=== PATIENT | female | born 1955 | race Caucasian/White ===

== ENCOUNTER 2023-05-18 14:37 | Outpatient (AMB) | payer BC, SELFPAY ==
[2023-05-18 14:51] VITALS: BP 140/76; PULSE 76; TEMP 36.4; O2SAT 98; BMI 27.8
--- NOTE | 2023-05-18 14:51 | MHC.OFFVIS ---
Intake Vital Signs 05/18/23 14:51 Height 5 ft 3 in Weight 157 lb 3.033 oz BMI 27.8 BP 140/76 H Blood Pressure Location Rt brachial Position Sitting Pulse 76 Pulse Source Pulse Oximeter Temp 97.6 F Temp Source Skin Pulse Oximetry (%) 98 Intake Visit Reasons: Fibromyalgia Intake Note: New pt presents today for FM consult. Tester Electronic Scale Required: No Accompanied by: Self / Same As Patient Allergies No Known Allergies Allergy (Verified 05/18/23 14:54) Medication List - Last Reconciled 05/18/23 by Vern Sweeney MD amitriptyline 20 mg PO BEDTIME atorvastatin 10 mg PO DAILY colestipol 2 grams PO DAILY esomeprazole magnesium 20 mg PO DAILY estradiol 0.01%(0.1mg/gram) grams vaginal HPI HPI Comments History of Present Illness Details This is a 67-year-old female who presents for evaluation of fibromyalgia. Patient stated that she has had fibromyalgia and arthritis for many years. She has been having left hip pain, recent hip x-ray showed progressive left hip osteoarthritis and patient was evaluated by an orthopedic surgeon and she is planned for left hip replacement. She also has pain in her back, usually worse with walking and going up the stairs. Does not radiate to her lower extremities. She has tingling and numbness of her right 3rd and 4th toes as well as numbness of the sole of both feet. She has restless leg and was prescribed amitriptyline by PCP which was not helpful. She states that when the cat sits on her lab she would get thigh pain. 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 Female Reproductive History Menstrual Total pregnancies: 2 Number of Living Children: 2 Review of Systems ENT Reports dry mouth and Reports tinnitus Card Reports dyspnea Resp Reports dyspnea GI Reports heartburn Musc Reports back pain, Reports myalgias, Reports arthralgias and Reports muscle cramps Psych Reports abnormal sleep pattern Physical Exam Vital Signs: Last Vital Signs Temp 97.6 F 05/18/23 14:51 Pulse 76 05/18/23 14:51 BP 140/76 H 05/18/23 14:51 Pulse Ox 98 05/18/23 14:51 BMI result Body Mass Index 27.8 Const General: cooperative, healthy appearing and comfortable Nutritional Appearance: overweight Orientation/consciousness: patient oriented x3 Limitations: no limitations HEENT Head: Yes normocephalic and Yes atraumatic Mouth: moist mucous membranes Resp Effort & Inspection: normal respiratory effort and able to speak in complete sentences GI Inspection: No distended Palpation (GI): Soft to palpation and nontender Neuro General: patient oriented x3 Extrem Other: Osteoarthritic changes of both hands with prominent Sweta's and Heberden's nodes. No active synovitis Normal range of motion of both elbows and shoulders Bilateral paraspinal muscle tenderness in the lower thoracic to lumbar areas. Negative straight leg raise test bilaterally Left trochanteric bursa area tenderness Few fibromyalgia tender points Assessment & Plan Assessment & Plan (1) Fibromyalgia: Code(s): M79.7 - Fibromyalgia Plan: This is a 67-year-old female who presents for evaluation of fibromyalgia. I do not see any signs of autoimmune rheumatic disease upon evaluation Discussed management of fibromyalgia with patient. Is a noninflammatory, non-autoimmune central afferent processing disorder leading to a diffuse pain syndrome. I suggested evaluation by a therapist and/or a psychiatrist to evaluate for underlying anxiety/depression. Try to follow sleep hygiene practices. Consider referral for a sleep study from her PCP. Patient would benefit from increased physical activity, either through formal physical therapy or by joining a gym. Advised patient that she should start activity slowly and increase as tolerated. Consider low-impact exercises such as walking, swimming, aqua therapy stretching, yoga. (2) Peripheral neuropathy: Code(s): G62.9 - Polyneuropathy, unspecified Plan: Peripheral neuropathy versus lumbar radiculopathy. Will check bilateral lower extremity NCS/EMG Plan I spent 46 minutes reviewing patient's chart, evaluating patient, ordering diagnostic workup, counseling patient and documenting in the chart Orders: Orders NE electromyogram (EMG) Today G62.9 - Polyneuropathy, unspecified Coding Level of Care Code New Pt Level 4 (66181) Diagnoses Fibromyalgia M79.7 Peripheral neuropathy G62.9
== END 2023-05-18 15:41 | disposition home or self-care (01) ==
PROVIDERS: PCP Internal Medicine; Visit Provider Student in an Organized Health Care Education/Training Program
DX: M79.7 Fibromyalgia (principal); G62.9 Polyneuropathy, unspecified
CPT/HCPCS: 99204

== ENCOUNTER → 2023-05-18 14:37 | Outpatient (BNVA) | payer BC, SELFPAY | PROVIDERS: PCP Internal Medicine; Visit Provider Student in an Organized Health Care Education/Training Program ==

== ENCOUNTER 2023-06-04 12:18 | Outpatient (REF) | payer BC, SELFPAY ==
--- NOTE | 2023-06-04 | EMG_ITS ---
Chief complaint: Bilateral legs/feet numbness constant, denies back pain Reason for referral: Evaluate for neuropathy Referred by: Dr. Sweeney Procedure done: Bilateral lower extremity NCS/EMG Precautions and/or limitations: None The limb temperature was monitored continuously and remained between 32-36 degrees C during the performance of the NCS. Nerve Conduction Studies Anti Sensory Summary Table ?Stim Site NR Onset (ms) Norm Onset (ms) Peak (ms) Norm Peak (ms) O-P Amp (?V) Norm O-P Amp Site1 Site2 Delta-0 (ms) Dist (cm) Jones (m/s) Norm Jones (m/s) Left Sural Anti Sensory (Lat Mall) Calf ? 4.0 5.0 <4.0 11.9 >5.0 Calf Lat Mall 4.0 14.0 35 Right Sural Anti Sensory (Lat Mall) Calf ? 4.0 4.6 <4.0 10.9 >5.0 Calf Lat Mall 4.0 14.0 35 Motor Summary Table ?Stim Site NR Onset (ms) Norm Onset (ms) O-P Amp (mV) Norm O-P Amp iAmp (mV) Amp (1st) (%) Site1 Site2 Delta-0 (ms) Dist (cm) Jones (m/s) Norm Jones (m/s) Left Peroneal Motor (Ext Dig Brev) Ankle ? 5.3 <4.0 0.8 >2.5 1.0 100.0 Ankle Ext Dig Brev 5.3 0.0 B Fib ? 13.7 1.3 1.4 162.5 B Fib Ankle 8.4 36.0 43 >40 Poplt ? 14.8 2.0 2.0 250.0 Poplt B Fib 1.1 5.0 45 >40 Right Peroneal Motor (Ext Dig Brev) Ankle ? 4.0 <4.0 1.1 >2.5 1.1 100.0 Ankle Ext Dig Brev 4.0 0.0 B Fib ? 12.7 0.8 0.7 72.7 B Fib Ankle 8.7 35.0 40 >40 Poplt ? 12.9 0.8 0.7 72.7 Poplt B Fib 0.2 3.5 175 >40 Left Tibial Motor (Abd Atkinson Brev) Ankle ? 5.6 <5 0.3 >2.5 0.3 100.0 Ankle Abd Atkinson Brev 5.6 0.0 Knee NR Knee Ankle 0.0 >40 Right Tibial Motor (Abd Atkinson Brev) Ankle ? 4.1 <5 2.0 >2.5 2.3 100.0 Ankle Abd Atkinson Brev 4.1 0.0 Knee ? 14.2 1.4 1.5 70.0 Knee Ankle 10.1 40.0 40 >40 EMG ?Side Muscle Nerve Root Ins Act Fibs Psw Amp Dur Poly Recrt Int Pat Comment Right AbdHallucis MedPlantar S1-2 Nml Nml Nml Nml Nml 0 Nml Complete Right AntTibialis Dp Br Peron L4-5 Nml Nml Nml Incr Incr 1+ Nml Complete Right PostTibialis Tibial L5, S1 Incr 1+ 1+ Nml Nml 0 Nml Complete Right MedGastroc Tibial S1-2 Incr 1+ 1+ Incr Incr 0 Nml Complete Right VastusMed Femoral L2-4 Nml Nml Nml Nml Nml 0 Nml Complete Left AbdHallucis MedPlantar S1-2 Nml Nml Nml Nml Nml 0 Nml Complete Left AntTibialis Dp Br Peron L4-5 Incr 1+ 1+ Incr Incr 0 Nml Complete Left PostTibialis Tibial L5, S1 Nml Nml Nml Nml Nml 0 Nml Complete Left MedGastroc Tibial S1-2 Nml Nml Nml Nml Nml 0 Nml Complete Left VastusMed Femoral L2-4 Nml Nml Nml Nml Nml 0 Nml Complete Paraspinal EMG ?Side Muscle Nerve Root Ins Act Fibs Psw Comment Right Lumbar Upper Rami Nml Nml Nml Right Lumbar Mid Rami Nml Nml Nml Right Lumbar Lower Rami Nml Nml Nml Left Lumbar Upper Rami Nml Nml Nml Left Lumbar Mid Rami Nml Nml Nml Left Lumbar Lower Rami Nml Nml Nml FINDINGS: Right peroneal nerve showed normal distal latency, small amplitude and normal conduction velocity. Left peroneal nerve showed prolonged distal latency, small amplitude and normal conduction velocity. Right tibial nerve showed normal distal latency, small amplitude and normal conduction velocity. Left tibial nerve showed very small amplitudes/no response. Bilateral sural nerves were present but showed prolonged peak latency. Concentric needle EMG was performed in selected muscles of the bilateral lower extremity and lumbar paraspinals. Study revealed Signs of electric abnormalities as shown in the table below. Right medial gastrocnemius showed increased insertional activity, PSWs and fibrillations, and increased amplitude and duration. Right tibialis anterior showed increased amplitude and duration, and polyphasia. Right posterior tibialis showed increased insertional activity, PSWs and fibrillations. Left tibialis anterior showed increased insertional activity, PSWs and fibrillations, and increased amplitude and duration. No denervation seen on lumbar paraspinals. No denervation or reinnervation changes seen on most distal muscle like AH. IMPRESSION: 1. This is an abnormal study. 2. There is electrodiagnostic findings suggestive for bilateral L5-S1 radiculopathy, with acute on chronic features. 3. Differential diagnosis for prolonged latencies of bilateral sural nerves include: underlying neuropathy, sciatic neuropathy, or age. CLINICAL COMMENT: Further clinical correlation recommended. Thank you for your kind referral. Lo Denton MD, HAY Board Certified, [place] Board [employer] Medicine and Rehabilitation (ABPMR) Board Certified, [place] Board of Electrodiagnostic Medicine (ABEM) [place] [id number] [facility]
== END 2023-06-04 12:19 | disposition home or self-care (01) ==
LOC: HO.NEURO 12:18
PROVIDERS: PCP Internal Medicine; Visit Provider Student in an Organized Health Care Education/Training Program
DX: M79.604 Pain in right leg (principal); M79.605 Pain in left leg; R20.0 Anesthesia of skin
CPT/HCPCS: 95886; 95909

== ENCOUNTER 2023-06-21 08:15 | Outpatient (AMB) | payer BC, SELFPAY ==
--- NOTE | 2023-06-21 08:16 | A.OFFVIS_ITS ---
Intake Vital Signs 06/21/23 08:26 Height 5 ft 3 in Weight 156 lb 8 oz BMI 27.7 BP 135/68 Blood Pressure Location Rt brachial Position Sitting Pulse 87 Pulse Source Pulse Oximeter Pulse Oximetry (%) 96 Oxygen Delivery Method Room Air Intake Visit Reasons: fibromyalgia Allergies No Known Allergies Allergy (Verified 06/21/23 08:25) HPI fibromyalgia HPI Details Patient is a pleasant 67 years old female with prior history of left hip pain, resless leg syndrome, progressive left hip OA with plans for left hip replacement, fibromyalgia, chronic pain syndrome and peripheral neuropathy. She was [place] to us [place] [facility] [place] [facility] to evaluate for L5-S1 radiculopathy findings per recent EMG studies as noted below. Patient reports chronic low back pain without radiation into her lower extremities. Pain spreads across her lower back and increases with walking, climbing stairs, prolonged driving, prolonged standing and housework chores. She reports seeing [facility] in the past and received back injection with partial improvement. Her pain symptoms overlap with with fibromyalgia, left hip, knee and foot pain. SLR testing is negative bilaterally. She reports driving from [place] this weekend and notes increase in her back symptoms. Reports numbness and tingling in both feet, mostly soles of her feet. Pain is constant and rated at 8-9/10 intensity. Pain affects her daily activities, functioning, sleep, social activities, mood and quality of life. Patient denies any bladder or bowel incontinence or saddle anesthesia. Location Lower back pain, left hip, knee and foot pain Duration Chronic back pain and chronic pain syndrome for many years Characteristics of symptom or complaint Aching, burning, pulsing, stabbing, sharp, tingling, tight, tiring Aggravating or associated factors Walking, housework, prolonged standing or driving, bending, twisting Relieving factors Rest, sitting, Tylenol, OTC topical applications Treatment PT, remote back injections at [facility] Medical History (Updated 06/21/23 @ 09:27 by AMARJIT Johnson) Pain in left hip Microhematuria Mass of arm LUQ abdominal pain Hypovitaminosis D Hyperlipidemia Hammertoe of left foot Costochondral chest pain Chronic heartburn Chronic back pain Burning sensation of feet Spinal stenosis in cervical region Chronic pain of multiple joints Fibromyalgia CTS (carpal tunnel syndrome) Surgical History Hx of lumpectomy Hx of cholecystectomy Family History Mother Dementia Social History Household Members: Spouse Household Members Other:: Daughter Alcohol intake: former Year quit: 2019 Patient Tobacco Use Status: Never used Tobacco e-Cigarette/Vaping Use: Never Used Current occupational status: retired 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 Alert and oriented. Mood and affect appropriate. Follows and participates in conversation appropriately. Respiratory effort is unlabored. No cough. Able to transition from sit to stand unassisted. Ambulates with bilaterally normal heel strike and toe off. Back/Spine/Pelvis Other: Patient is able to walk and stand on heels and tip toes with no difficulties demonstrating good motor tone. Mildly antalgic gait, mild limping. Can flex forward to 70-75 degrees and extend to 5-10 degrees before experiencing lumbar pain. Demonstrates 5/5 right and 4/5 left strength of quadriceps bilaterally as well as flexion/dorsiflexion of bilateral feet against resistance. 2+ pedal pulses bilaterally. Seated straight leg rise with dorsiflexion negative bilaterally. +1 patellar and achilles reflexes bilaterally. Facet loading test positive bilaterally. Kamryn sign, Cristhian?s reproduces left lateral hip, mild back pain on the left, negative on the right. Mild groin pain with I/E hip rotations on the left. Valsalva maneuver negative. Mild TTP to left GTB. Few fibromyalgia tender points upper and lower extremities. Cervical Spine: cervical ROM normal and No Cervical spine tenderness Thoracic/Lumbar Spine: thoracic and lumbar spine normal to inspection, No Thoracic/lumbar spine scar(s), Lasegue's sign negative, straight leg raise negative bilaterally, pain with thoraco-lumbar ROM, paraspinal muscle tenderness, No thoracic spinal tenderness and lumbar spinal tenderness at L4 and at L5 Pelvis: no buttock tenderness Sacroiliac joints: bilaterally nontender Results Reviewed Results Reviewed: NE electromyogram (EMG); NE nerve conduction velocity 06/04/23 FINDINGS: Right peroneal nerve showed normal distal latency, small amplitude and normal conduction velocity. Left peroneal nerve showed prolonged distal latency, small amplitude and normal conduction velocity. Right tibial nerve showed normal distal latency, small amplitude and normal conduction velocity. Left tibial nerve showed very small amplitudes/no response. Bilateral sural nerves were present but showed prolonged peak latency. Concentric needle EMG was performed in selected muscles of the bilateral lower extremity and lumbar paraspinals. Study revealed Signs of electric abnormalities as shown in the table below. Right medial gastrocnemius showed increased insertional activity, PSWs and fibrillations, and increased amplitude and duration. Right tibialis anterior showed increased amplitude and duration, and polyphasia. Right posterior tibialis showed increased insertional activity, PSWs and fibrillations. Left tibialis anterior showed increased insertional activity, PSWs and fibrillations, and increased amplitude and duration. No denervation seen on lumbar paraspinals. No denervation or reinnervation changes seen on most distal muscle like AH. IMPRESSION: 1. This is an abnormal study. 2. There is electrodiagnostic findings suggestive for bilateral L5-S1 radiculopathy, with acute on chronic features. 3. Differential diagnosis for prolonged latencies of bilateral sural nerves include: underlying neuropathy, sciatic neuropathy, or age. CLINICAL COMMENT: Further clinical correlation recommended. Assessment & Plan Assessment & Plan (1) Lumbar radiculopathy: Code(s): M54.16 - Radiculopathy, lumbar region (2) Peripheral neuropathy: Code(s): G62.9 - Polyneuropathy, unspecified (3) Fibromyalgia: Code(s): M79.7 - Fibromyalgia (4) Chronic low back pain: Code(s): M54.50 - Low back pain, unspecified; G89.29 - Other chronic pain (5) Lumbar spondylosis: Code(s): M47.816 - Spondylosis without myelopathy or radiculopathy, lumbar region Plan MRI of the lumbar spine to assess for neural integrity and compression and to follow up on recent EMG studies suggestive of L5-S1 radiculpathy. Patient prefers to defer physical therapy at this time due to significant left hip pain and awaits left total hip replacement in the near future. All questions and concerns have been answered and patient agreed with the plan. Patient will return to the clinic to discuss results of the MRI findings when it is done and consider interventional therapy as indicated. Orders: Orders MR lumbar spine wo con Today F40.240 - Claustrophobia, G62.9 - Polyneuropathy, unspecified, M54.16 - Radiculopathy, lumbar region Coding Level of Care Code New Pt Level 4 (73397) Diagnoses Lumbar radiculopathy M54.16 Peripheral neuropathy G62.9 Fibromyalgia M79.7 Chronic low back pain M54.50; G89.29 Lumbar spondylosis M47.816
[2023-06-21 08:26] VITALS: BP 135/68; PULSE 87; O2SAT 96; BMI 27.7
== END 2023-06-21 08:43 | disposition home or self-care (01) ==
PROVIDERS: PCP Internal Medicine; Visit Provider Nurse Practitioner Family
DX: G89.29 Other chronic pain (principal); M79.7 Fibromyalgia; M47.26 Other spondylosis with radiculopathy, lumbar region; G62.9 Polyneuropathy, unspecified
CPT/HCPCS: 99204

== ENCOUNTER → 2023-06-21 08:15 | Outpatient (BNVA) | payer BC, SELFPAY | PROVIDERS: PCP Internal Medicine; Visit Provider Nurse Practitioner Family ==

== ENCOUNTER 2023-08-24 13:20 | Outpatient (AMB) | payer BC, SELFPAY ==
--- NOTE | 2023-08-24 13:27 | MHC.OFFVIS ---
Intake Vital Signs 08/24/23 13:30 Height 5 ft 3 in Weight 157 lb 10.088 oz BMI 27.9 BP 146/78 H Blood Pressure Location Rt brachial Position Sitting Pulse 98 Pulse Source Pulse Oximeter Temp 97.6 F Temp Source Skin Pulse Oximetry (%) 97 Oxygen Delivery Method Room Air Intake Visit Reasons: FMS Intake Note: Pt last seen 05/18/23, presents today to follow up. Would like to know EMG and MRI test results. Coil Cleaner Required: No Accompanied by: Self / Same As Patient Allergies No Known Allergies Allergy (Verified 08/24/23 13:36) Medication List - Last Reconciled 08/24/23 by Vern Sweeney MD amitriptyline 20 mg PO BEDTIME atorvastatin 10 mg PO DAILY colestipol 2 grams PO DAILY esomeprazole magnesium 20 mg PO DAILY estradiol 0.01%(0.1mg/gram) grams vaginal HPI HPI Comments History of Present Illness Details 67-year-old female with fibromyalgia returns for follow-up. She states that been putting off her left hip replacement, she would like to get it done after the holidays. She states that her fibromyalgia is about the same. She was evaluated by Pain Management and an MRI was ordered and completed but patient did not have a follow-up appointment with pain management. Initial history: This is a 67-year-old female who presents for evaluation of fibromyalgia. Patient stated that she has had fibromyalgia and arthritis for many years. She has been having left hip pain, recent hip x-ray showed progressive left hip osteoarthritis and patient was evaluated by an orthopedic surgeon and she is planned for left hip replacement. She also has pain in her back, usually worse with walking and going up the stairs. Does not radiate to her lower extremities. She has tingling and numbness of her right 3rd and 4th toes as well as numbness of the sole of both feet. She has restless leg and was prescribed amitriptyline by PCP which was not helpful. She states that when the cat sits on her lab she would get thigh pain. [facility] Medical History Pain in left hip Microhematuria Mass of arm LUQ abdominal pain Hypovitaminosis D Hyperlipidemia Hammertoe of left foot Costochondral chest pain Chronic heartburn Chronic back pain Burning sensation of feet Spinal stenosis in cervical region Chronic pain of multiple joints Fibromyalgia CTS (carpal tunnel syndrome) Surgical History Hx of lumpectomy Hx of cholecystectomy Family History Mother Dementia Social History Household Members: Spouse Household Members Other:: Daughter Alcohol intake: former Year quit: 2019 Patient Tobacco Use Status: Never used Tobacco e-Cigarette/Vaping Use: Never Used Current occupational status: retired Current occupation: [employer] Review of Systems ENT Reports tinnitus Musc Reports back pain, Reports myalgias, Reports arthralgias and Reports muscle cramps Psych Reports abnormal sleep pattern Physical Exam Vital Signs: Last Vital Signs Temp 97.6 F 08/24/23 13:30 Pulse 98 08/24/23 13:30 BP 146/78 H 08/24/23 13:30 Pulse Ox 97 08/24/23 13:30 Oxygen Delivery Method Room Air 08/24/23 13:30 BMI result Body Mass Index 27.9 Const General: cooperative, healthy appearing and comfortable Nutritional Appearance: overweight Orientation/consciousness: patient oriented x3 Limitations: no limitations HEENT Head: Yes normocephalic and Yes atraumatic Resp Effort & Inspection: normal respiratory effort and able to speak in complete sentences Neuro General: patient oriented x3 Extrem Other: Osteoarthritic changes of both hands with prominent Sweta's and Heberden's nodes. No active synovitis Results Reviewed Results Reviewed: NE electromyogram (EMG); NE nerve conduction velocity 06/04/23 FINDINGS: Right peroneal nerve showed normal distal latency, small amplitude and normal conduction velocity. Left peroneal nerve showed prolonged distal latency, small amplitude and normal conduction velocity. Right tibial nerve showed normal distal latency, small amplitude and normal conduction velocity. Left tibial nerve showed very small amplitudes/no response. Bilateral sural nerves were present but showed prolonged peak latency. Concentric needle EMG was performed in selected muscles of the bilateral lower extremity and lumbar paraspinals. Study revealed Signs of electric abnormalities as shown in the table below. Right medial gastrocnemius showed increased insertional activity, PSWs and fibrillations, and increased amplitude and duration. Right tibialis anterior showed increased amplitude and duration, and polyphasia. Right posterior tibialis showed increased insertional activity, PSWs and fibrillations. Left tibialis anterior showed increased insertional activity, PSWs and fibrillations, and increased amplitude and duration. No denervation seen on lumbar paraspinals. No denervation or reinnervation changes seen on most distal muscle like AH. IMPRESSION: 1. This is an abnormal study. 2. There is electrodiagnostic findings suggestive for bilateral L5-S1 radiculopathy, with acute on chronic features. 3. Differential diagnosis for prolonged latencies of bilateral sural nerves include: underlying neuropathy, sciatic neuropathy, or age. CLINICAL COMMENT: Further clinical correlation recommended. Assessment & Plan Assessment & Plan (1) Fibromyalgia: Code(s): M79.7 - Fibromyalgia Plan: This is a 67-year-old female who presents fibromyalgia follow-up. Symptoms are essentially unchanged. Patient is not interested in psychotherapy or psychiatry evaluation. I suggested referral for a sleep study to rule out obstructive sleep apnea. Patient will think about it. Advised patient to start a regular exercise program, her mobility is limited due to significant left hip osteoarthritis, patient is due for left hip replacement but has been putting it off. Patient was evaluated by Pain Management and an L-spine MRI was ordered and completed, patient however did not have a follow-up appointment to discuss results. Will reach out to Pain Management to schedule a follow-up visit Follow-up with PCP Plan I spent 16 minutes reviewing patient's chart, evaluating patient, counseling patient and documenting in the chart Coding Level of Care Code Est Pt Level 3 (10739) Diagnoses Fibromyalgia M79.7
[2023-08-24 13:30] VITALS: BP 146/78; PULSE 98; TEMP 36.4; O2SAT 97; BMI 27.9
== END 2023-08-24 14:30 | disposition home or self-care (01) ==
PROVIDERS: PCP Internal Medicine; Visit Provider Student in an Organized Health Care Education/Training Program
DX: M79.7 Fibromyalgia (principal)
CPT/HCPCS: 99213

== ENCOUNTER → 2023-08-24 13:20 | Outpatient (BNVA) | payer BC, SELFPAY | PROVIDERS: PCP Internal Medicine; Visit Provider Student in an Organized Health Care Education/Training Program ==

== ENCOUNTER 2023-09-02 11:06 | Outpatient (AMB) | payer BC, SELFPAY ==
--- NOTE | 2023-09-02 11:18 | A.OFFVIS_ITS ---
Intake Vital Signs 09/02/23 11:38 Height 5 ft 3 in Weight 155 lb BMI 27.5 BP 158/77 H Blood Pressure Location Rt brachial Position Sitting Pulse 89 Pulse Source Pulse Oximeter Pulse Oximetry (%) 99 Oxygen Delivery Method Room Air Intake Visit Reasons: MRI FOLLOW UP/RESULTS/confirmed Intake Note: Pain today 0/10 Palliative Medicine Physician Required: No Accompanied by: Self / Same As Patient Allergies No Known Allergies Allergy (Verified 09/02/23 11:38) HPI HPI Comments History of Present Illness Details Patient presents today for follow up and review recent lumbar spine MRI results. Denies any recent cough, cold, infection, fever or other significant changes in medical history since last office visit. PRIOR: Patient is a pleasant 67 years old female with prior history of left hip pain, resless leg syndrome, progressive left hip OA with plans for left hip replacement, fibromyalgia, chronic pain syndrome and peripheral neuropathy. She was referred to us by [facility] to evaluate for L5-S1 radiculopathy findings per recent EMG studies as noted below. Patient reports chronic low back pain without radiation into her lower extremities. Pain spreads across her lower back and increases with walking, climbing stairs, prolonged driving, prolonged standing and housework chores. She reports seeing [facility] in the past and received back injection with partial improvement. Her pain symptoms overlap with with fibromyalgia, left hip, knee and foot pain. SLR testing is negative bilaterally. She reports driving from [place] this weekend and notes increase in her back symptoms. Reports numbness and tingling in both feet, mostly soles of her feet. Pain is constant and rated at 8-9/10 intensity. Pain affects her daily activities, functioning, sleep, social activities, mood and quality of life. Patient denies any bladder or bowel incontinence or saddle anesthesia. Location Lower back pain, left hip, knee and foot pain Duration Chronic back pain and chronic pain syndrome for many years Characteristics of symptom or complaint Aching, burning, pulsing, stabbing, sharp, tingling, tight, tiring Aggravating or associated factors Walking, housework, prolonged standing or driving, bending, twisting Relieving factors Rest, sitting, Tylenol, OTC topical applications Treatment PT, remote back injections at [facility] Pain in left hip Microhematuria Mass of arm LUQ abdominal pain Hypovitaminosis D Hyperlipidemia Hammertoe of left foot Costochondral chest pain Chronic heartburn Chronic back pain Burning sensation of feet Spinal stenosis in cervical region Chronic pain of multiple joints Fibromyalgia CTS (carpal tunnel syndrome) Surgical History Hx of lumpectomy Hx of cholecystectomy Family History Mother Dementia Social History Household Members: Spouse Household Members Other:: Daughter Alcohol intake: former Year quit: 2019 Patient Tobacco Use Status: Never used Tobacco e-Cigarette/Vaping Use: Never Used Current occupational status: retired Current occupation: [employer] Review of Systems Const All systems reviewed & are unremarkable except as noted in HPI and below Physical Exam Vital Signs: Last Vital Signs Pulse 89 09/02/23 11:38 BP 158/77 H 09/02/23 11:38 Pulse Ox 99 09/02/23 11:38 Oxygen Delivery Method Room Air 09/02/23 11:38 BMI result Body Mass Index 27.5 General: Appears afebrile. Alert and oriented. Mood and affect appropriate. Follows and participates in conversation appropriately. Respiratory effort is unlabored. No cough. Able to transition from sit to stand unassisted. Ambulates with bilaterally normal heel strike and toe off. Back/Spine/Pelvis Cervical Spine: cervical ROM normal and No Cervical spine tenderness Thoracic/Lumbar Spine: Lasegue's sign negative, straight leg raise negative bilaterally, pain with thoraco-lumbar ROM, paraspinal muscle tenderness, No thoracic spinal tenderness and lumbar spinal tenderness at L4 and at L5 Pelvis: no buttock tenderness Sacroiliac joints: bilaterally nontender Results Reviewed Results Reviewed: MR SPINE LUMBAR without CONTRAST at [facility] 07/19/23 INDICATION: Lumbar region radiculopathy. Polyneuropathy, unspecified. Low back pain. TECHNIQUE: Unenhanced multiplanar, multisequence MR imaging of the lumbar spine. COMPARISON: None Available. FINDINGS: No radiographic evidence of acute fracture or traumatic subluxation. If symptoms persist, further assessment with CT or MRI may be considered. Trace anterolisthesis L4 and L5 and L5 on S1, likely degenerative in nature. Vertebral heights are well maintained. Bone marrow signal is within normal limits, and no suspicious osseous lesion is identified. Conus medullaris is unremarkable. Paraspinal soft tissues and visualized portions of the abdomen and pelvis are unremarkable. At T12-L1 no significant disc bulging. Mild facet arthropathy. No central canal or neural foraminal narrowing. At L1-2 there is no significant disc bulging. Mild facet arthropathy and ligamentum flavum thickening. No central canal or neural foraminal narrowing. At L2-3 there is minor annular bulging. Mild ligamentum flavum thickening. Mild neural foraminal narrowing. No central canal narrowing. At L3-4 there is minor annular bulging. Mild facet arthropathy and ligamentum flavum thickening. Mild neural foraminal narrowing. No significant central canal narrowing. At L4-5 there is disc desiccation. Mild diffuse disc bulging. Mild facet arthropathy. Mild left neural foraminal narrowing. No central canal narrowing. At L5-S1 there is mild annular bulging. Grade 1 anterolisthesis L5 on S1. Possible L5 spondylolysis. Facet arthropathy is seen. Mild neural foraminal narrowing. No central canal narrowing.. IMPRESSION: No radiographic evidence of acute fracture or traumatic subluxation of the lumbar spine. Trace anterolisthesis L4 on L5 and L5 on S1, likely degenerative in nature. Possible L5 spondylolysis. Multilevel degenerative disc disease as described. NE electromyogram (EMG); NE nerve conduction velocity 06/04/23 FINDINGS: Right peroneal nerve showed normal distal latency, small amplitude and normal conduction velocity. Left peroneal nerve showed prolonged distal latency, small amplitude and normal conduction velocity. Right tibial nerve showed normal distal latency, small amplitude and normal conduction velocity. Left tibial nerve showed very small amplitudes/no response. Bilateral sural nerves were present but showed prolonged peak latency. Concentric needle EMG was performed in selected muscles of the bilateral lower extremity and lumbar paraspinals. Study revealed Signs of electric abnormalities as shown in the table below. Right medial gastrocnemius showed increased insertional activity, PSWs and fibrillations, and increased amplitude and duration. Right tibialis anterior showed increased amplitude and duration, and polyphasia. Right posterior tibialis showed increased insertional activity, PSWs and fibrillations. Left tibialis anterior showed increased insertional activity, PSWs and fibrillations, and increased amplitude and duration. No denervation seen on lumbar paraspinals. No denervation or reinnervation changes seen on most distal muscle like AH. IMPRESSION: 1. This is an abnormal study. 2. There is electrodiagnostic findings suggestive for bilateral L5-S1 radiculopathy, with acute on chronic features. 3. Differential diagnosis for prolonged latencies of bilateral sural nerves include: underlying neuropathy, sciatic neuropathy, or age. CLINICAL COMMENT: Further clinical correlation recommended. Assessment & Plan Assessment & Plan (1) Lumbar radiculopathy: Code(s): M54.16 - Radiculopathy, lumbar region (2) Peripheral neuropathy: Code(s): G62.9 - Polyneuropathy, unspecified (3) Fibromyalgia: Code(s): M79.7 - Fibromyalgia (4) Chronic low back pain: Code(s): M54.50 - Low back pain, unspecified; G89.29 - Other chronic pain (5) Lumbar spondylosis: Code(s): M47.816 - Spondylosis without myelopathy or radiculopathy, lumbar region Plan MRI of the lumbar spine was reviewed with patient today and is noted for multilevel degenerative disc disease with slight anterolisthesis L4 on L5 and L5 on S1 and possible L5 spondylolysis. No radiographic evidence of acute fracture or traumatic subluxation of the lumbar spine. Patient reports no pain today. She continues to delay left hip replacement surgery. Discussed therapeutic and fluoro guided left hip steroid injections if her left hip returns. Patient will notify our office if she is interested in interventional treatments. All questions and concerns have been answered and patient agreed with the plan. Follow up as needed. Coding Level of Care Code Est Pt Level 3 (01160) Diagnoses Lumbar radiculopathy M54.16 Peripheral neuropathy G62.9 Fibromyalgia M79.7 Chronic low back pain M54.50; G89.29 Lumbar spondylosis M47.816
[2023-09-02 11:38] VITALS: BP 158/77; PULSE 89; O2SAT 99; BMI 27.5
== END 2023-09-02 12:00 | disposition home or self-care (01) ==
PROVIDERS: PCP Internal Medicine; Visit Provider Nurse Practitioner Family
DX: M54.16 Radiculopathy, lumbar region (principal); G62.9 Polyneuropathy, unspecified; M79.7 Fibromyalgia; M54.50 Low back pain, unspecified; G89.29 Other chronic pain; M47.816 Spondylosis without myelopathy or radiculopathy, lumbar region
CPT/HCPCS: 99213

== ENCOUNTER → 2023-09-02 11:06 | Outpatient (BNVA) | payer BC, SELFPAY | PROVIDERS: PCP Internal Medicine; Visit Provider Nurse Practitioner Family ==